=== PATIENT | female | born 1970 | race Caucasian/White ===

== ENCOUNTER 2020-06-23 13:32 | Inpatient (IN) ==
[~2020-06-23 13:32] MED LIST: Povidone-Iodine 45 ML, Sodium Chloride IRRigation 1,000 ML IR ONE
[2020-06-23] MEDS ORDERED: *HR* Propofol 200 MG/20 ML VIAL IVP ONE (13:41)
[2020-06-23] MEDS ORDERED: Ondansetron 4 MG/2 ML VIAL ONE (13:41)
[2020-06-23] MEDS ORDERED: Lidocaine -MPF 2% 2 ML VIAL ONE (13:41)
[2020-06-23] MEDS ORDERED: *HR* Succinylcholine 200 MG/10 ML VIAL IVP ONE (13:41)
[2020-06-23] MEDS ORDERED: Lidocaine -MPF 4% 5 ML AMPUL ONE (13:41)
[2020-06-23] MEDS ORDERED: Dexamethasone 4 MG/ML VIAL ONE (13:41)
[2020-06-23] MEDS ORDERED: CeFAZolin Syr 2,000MG/20 ML 2,000 MG/20 ML SYRINGE IVPB ONE (14:01)
[2020-06-23] MEDS ORDERED: Vancomycin 1,000 MG VIAL ONE (14:13)
[2020-06-23] MEDS ORDERED: Ethanol\\Acetic Acid\\Na Ace\\Ben 1,000 ML IRRIG.SOLN IR ONE (14:13)
[2020-06-23] MEDS ORDERED: Ringers Solution, Lactated 1,000 ML IVC SCH ×2 (14:15→17:34)
[2020-06-23] MEDS ORDERED: *HR* FentaNYL (PF) 100 MCG/2 ML VIAL ONE (14:16)
[2020-06-23] MEDS ORDERED: *HR* Midazolam HCl 2 MG/2 ML VIAL ONE (14:16)
[2020-06-23] MEDS ORDERED: Ropivacaine/PF 0.5% 30 ML VIAL ONE (14:16)
[2020-06-23] MEDS ORDERED: *HR* OxyCODONE Immed Rel 5 MG TABLET PO PRN ×2 (14:42→17:34)
[2020-06-23] MEDS ORDERED: Pregabalin 75 MG CAPSULE PO ONE (14:42)
[2020-06-23] MEDS ORDERED: *HR* Labetalol 20 MG/4 ML SYRINGE IVP PRN (14:42)
[2020-06-23] MEDS ORDERED: Acetaminophen IV 1,000 MG/100 ML BAG IVPB ONE (14:42)
[2020-06-23] MEDS ORDERED: Famotidine 20 MG/2 ML VIAL IVP ONE (14:42)
[2020-06-23] MEDS ORDERED: *HR* HYDROmorphone PF 0.5 MG/0.5 ML SYRINGE IVP PRN (14:42)
[2020-06-23] MEDS ORDERED: *HR* HYDROmorphone 2 MG TABLET PO PRN (14:42)
[2020-06-23] MEDS ORDERED: EPHEDrine 50 MG/ML VIAL ONE (15:38)
[2020-06-23] MEDS ORDERED: *HR* Rocuronium Bromide 50 MG/5 ML VIAL ONE (16:14)
[2020-06-23 17:13] LABS: Hematocrit 37.7 % (35.3-44.9); Hemoglobin 12.2 g/dL (11.5-15.4)
[2020-06-23] MEDS ORDERED: D5% in Water 1,000 ML IVC PRN (17:34)
[2020-06-23] MEDS ORDERED: *HR* Dextrose 50 % in Water (Vial) 50 ML VIAL IVP PRN (17:34)
[2020-06-23] MEDS ORDERED: *HR* OxyCODONE/APAP 5/325 TABLET PO PRN (17:34)
[2020-06-23] MEDS ORDERED: MOM Conc 10 ML UD.LIQ PO PRN (17:34)
[2020-06-23] MEDS ORDERED: Sennosides 8.6 MG TABLET PO PRN (17:34)
[2020-06-23] MEDS ORDERED: NON-FORMULARY MEDICATION 1 EACH EACH (Alendronate Sodium [Fosamax] 70 MG) PO SCH (17:34)
[2020-06-23] MEDS ORDERED: Ondansetron 4 MG/2 ML VIAL IVP PRN (17:34)
[2020-06-23] MEDS ORDERED: Dextrose Gel 15 GM/37.5 ML TUBE PO PRN ×2 (17:34)
[2020-06-23] MEDS ORDERED: Naloxone 0.4 MG/ML INJ IVP PRN (17:34)
[2020-06-23] MEDS ORDERED: *HR* Enoxaparin 30 MG/0.3 ML SYRINGE SQ SCH (18:00)
[2020-06-23] MEDS: *HR* Enoxaparin 30 MG/0.3 ML SYRINGE SQ SCH (19:20)
[2020-06-23] MEDS: Insulin LISPRO 300 UNITS/3 ML VIAL SQ SCH (19:21)
[2020-06-23] MEDS: CeFAZolin 2 GM/120 ML BAG IVPB SCH ×2 (19:44→23:41)
[2020-06-23] MEDS: ALPRAZolam 0.5 MG TABLET PO SCH (20:56)
[2020-06-23] MEDS: Nicotine 14 MG PATCH.TD24 TD SCH (20:56)
[2020-06-23] MEDS ORDERED: Insulin LISPRO 300 UNITS/3 ML VIAL SQ SCH (21:00)
[2020-06-24] MEDS: *HR* Enoxaparin 30 MG/0.3 ML SYRINGE SQ SCH (05:14)
[2020-06-24 06:51] VITALS: BP 101/67
[2020-06-24 07:45] LABS: Hematocrit 39.8 % (35.3-44.9); Hemoglobin 13.1 g/dL (11.5-15.4)
[2020-06-24 07:53] LABS: BUN/Creatinine Ratio 11 (6-26); Blood Urea Nitrogen 10 mg/dL (6-20); Calcium 9.2 mg/dL (8.6-10.3); Carbon Dioxide 26 mEq/L (23-29); Chloride 105 mEq/L (98-107); Glucose 122 mg/dL (70-105); Osmolality,Calculated 286 (280-300); Sodium 138 mEq/L (136-145); eGFR For African Americans > 60 (> 60); eGFR For Non-African Americans > 60 (> 60)
[2020-06-24] MEDS: Insulin LISPRO 300 UNITS/3 ML VIAL SQ SCH (08:23)
[2020-06-24] MEDS: ALPRAZolam 0.5 MG TABLET PO SCH (08:34)
[2020-06-24] MEDS: Nicotine 14 MG PATCH.TD24 TD SCH (08:35)
[2020-06-24] MEDS ORDERED: Cholecalciferol (D-3) 1,000 UNIT (25MCG) TABLET PO SCH (09:00)
== END 2020-06-24 11:33 | disposition home or self-care (01) | DRG 322 ==
LOC: SAMDAY 13:32 → 3NENU 13:40
PROVIDERS: ADMIT Orthopaedic Surgery; ATTEND Orthopaedic Surgery